=== PATIENT | male | born 1990 ===

== ENCOUNTER 2020-06-11 19:21 | Emergency (ER) | payer OTHER ==
[~2020-06-11] VITALS: Ht 177.8 cm; Wt 99.8 kg
[~2020-06-11 19:21] MED LIST: TYLENOL AT
[2020-06-11] MEDS ORDERED: Crutch1 EACH MISC (22:37)
[2020-06-11] MEDS ORDERED: Cleocin HCl300 MG PO (22:38)
[2020-06-11] MEDS ORDERED: Bactrim Ds Tab1 EACH PO (22:38)
== END 2020-06-11 22:47 | disposition home or self-care (01) ==
LOC: ER 19:21
DX: S92.314A Nondisplaced fracture of first metatarsal bone, right foot, initial encounter for closed fracture (principal); Z87.891 Personal history of nicotine dependence; W20.8XXA Other cause of strike by thrown, projected or falling object, initial encounter; S91.311A Laceration without foreign body, right foot, initial encounter; Y92.89 Other specified places as the place of occurrence of the external cause; Y99.0 Civilian activity done for income or pay
CPT/HCPCS: 29515; 73630; 73700; 96365-59; 99284-25; A9270-GY